=== PATIENT | female | born 1995 | race Caucasian/White ===

== ENCOUNTER 2016-08-05 14:19 | Emergency (ER) | payer OTHER ==
--- NOTE | 2016-08-05 17:54 | ER ---
ADMIT: 08/05/2016 RM/LOC: ER [facility] MR#: [id number] [address] [id number] SINTIA ACUÑA [address] [place] [address] Emergency Room Report SEX: F AGE: 20 : 1995 DATE: 08/05/2016 HISTORY OF PRESENT ILLNESS: The patient is a 20-year-old female with past medical history of multiple kidney stones since age of 10 and lithotripsy, who came to the ER with right flank pain. The patient states during the last 2 weeks she passed two small stones, and strained them with a coffee filter. Also had left flank pain, and states that she had bilateral kidney stones. Per patient, the right flank pain is moderate and radiates to the medial thigh and is very similar in quality and quantity to the previous kidney stone pains. The patient took Tylenol at home, which did not resolve the pain. The patient denies any fever, nausea, or vomiting. PHYSICAL EXAMINATION: HEAD AND NECK: Normal. CHEST: Clear bilaterally. HEART: Normal heart sounds. ABDOMEN: The patient had mild CVA tenderness. There is no tenderness in abdomen in the front. EXTREMITIES: There is no swelling in extremities. The rest of the physical exam is noncontributory. The patient states at the moment, she is on period and she has IUD, and also states that she did not notice any blood in the urine. The patient denies any vaginal discharge. The patient has stable vitals, was afebrile, in very mild apparent distress, pain was controlled. KUB x-ray was positive for multiple bilateral kidney stones, the biggest one was 4 mm, which is nonobstructive. Creatinine level is 0.8. test was negative. Urine has 1 wbc and 1 rbc. At the moment, the patient has no pain. Abdominal exam was repeated. The patient had no CVA tenderness, no abdominal tenderness, and no guarding or rebound. The patient is completely asymptomatic. The patient has an appointment with the urologist, and was discharged to home with return precautions, prescription for 10 Percocets 325/5 for breakthrough pain and follow up with the primary doctor and [facility] as scheduled. The patient acknowledged that she understood the plan and she agreed with it and was discharged home. King Maldonado MD/ jamaal JOB #: [id number] CC: Prieto Willard MD, Attending Physician Dominick Jim MD, Family Physician
== END 2016-08-05 16:55 | disposition home or self-care (01) ==
LOC: ER 14:19
DX: N20.0 Calculus of kidney (principal); F32.9 Major depressive disorder, single episode, unspecified; Z88.0 Allergy status to penicillin; Z79.899 Other long term (current) drug therapy; Z98.890 Other specified postprocedural states